=== PATIENT | male | born 1975 | race Caucasian/White ===

== ENCOUNTER → 2020-08-13 | Outpatient (CLI) | payer MEDICARE, OTHER ==
[~2020-08-13] MED LIST: ACTOS15 MG PO; CLARITIN10 M2 PO; CLEOCIN HCL300 MG PO; GABAPENTIN400 MG PO; HUMALOG100 UNIT/1 SC; JANUMET 50-1,01 EACH PO; LASIX 40 MG TAB40 MG PO; METOPROLOL SUCC50 MG PO; POTASSIUM CHLO10 ME2 PO; PRAVACHOL40 MG PO; PROBIOTIC1 EAC1 PO; TOUJEO MAX300 UNIT/1 SQ; ZESTRIL 40 MG T40 MG PO
== END ==
LOC: KOH-I 14:30
DX: N20.0 Calculus of kidney (principal)
CPT/HCPCS: 74176

== ENCOUNTER → 2020-11-14 | Outpatient (CLI) | payer MEDICARE, OTHER | LOC: CT 10:46 | DX: R31.9 Hematuria, unspecified (principal); K76.0 Fatty (change of) liver, not elsewhere classified; R16.1 Splenomegaly, not elsewhere classified | CPT/HCPCS: 36415; 82565; Q9967 ==

== ENCOUNTER 2021-02-24 11:15 | Emergency (ER) | payer MEDICARE, OTHER ==
[2021-02-24] MEDS ORDERED: CYCLOBENZAPRINE10 MG PO (13:44)
== END 2021-02-24 13:50 | disposition home or self-care (01) ==
LOC: ER1 11:15
DX: S93.401A Sprain of unspecified ligament of right ankle, initial encounter (principal); M54.50 Low back pain, unspecified; S80.811A Abrasion, right lower leg, initial encounter; S50.811A Abrasion of right forearm, initial encounter; E11.9 Type 2 diabetes mellitus without complications; I10 Essential (primary) hypertension; F41.9 Anxiety disorder, unspecified; V49.9XXA Car occupant (driver) (passenger) injured in unspecified traffic accident, initial encounter
CPT/HCPCS: 72128; 72131; 73610; 99284

== ENCOUNTER 2021-05-03 13:43 | Inpatient (IN) | payer MEDICARE, OTHER ==
[~2021-05-03] VITALS: Ht 180.3 cm; Wt 124.7 kg
[~2021-05-03 13:43] MED LIST changes: +CYCLOBENZAPRINE10 MG PO; -HUMALOG100 UNIT/1 SC; +HUMALOG100 UNIT/1 SQ
[2021-05-03 14:43] LABS: HEMOGLOBIN 13.6 gm/dl (14.0-17.5); RED BLOOD COUNT 5.35 M/UL (4.20-5.50); WHITE BLOOD COUNT 7.6 K/UL (4.5-11.0)
[2021-05-03 15:03] LABS: BUN/CREATININE RATIO 21 (0-10)
[2021-05-03] MEDS ORDERED: CLINDAMYCIN HC300 MG PO (17:55)
[2021-05-03] MEDS ORDERED: AMLODIPINE BES2.5 MG PO (17:56)
[2021-05-04 06:22] LABS: HEMOGLOBIN 12.9 gm/dl (14.0-17.5); RED BLOOD COUNT 5.07 M/UL (4.20-5.50); WHITE BLOOD COUNT 7.2 K/UL (4.5-11.0)
[2021-05-04 07:04] LABS: BUN/CREATININE RATIO 20 (0-10)
[2021-05-05 05:48] LABS: HEMOGLOBIN 12.8 gm/dl (14.0-17.5); RED BLOOD COUNT 5.07 M/UL (4.20-5.50); WHITE BLOOD COUNT 6.4 K/UL (4.5-11.0)
[2021-05-05 06:19] LABS: BUN/CREATININE RATIO 22 (0-10)
[2021-05-06 06:26] LABS: HEMOGLOBIN 13.6 gm/dl (14.0-17.5); RED BLOOD COUNT 5.24 M/UL (4.20-5.50); WHITE BLOOD COUNT 6.4 K/UL (4.5-11.0)
[2021-05-06 06:48] LABS: BUN/CREATININE RATIO 22 (0-10)
[2021-05-07 05:01] LABS: HEMOGLOBIN 12.6 gm/dl (14.0-17.5); RED BLOOD COUNT 4.86 M/UL (4.20-5.50); WHITE BLOOD COUNT 7.5 K/UL (4.5-11.0)
[2021-05-07 05:13] LABS: BUN/CREATININE RATIO 24 (0-10)
[2021-05-08 03:38] LABS: HEMOGLOBIN 12.8 gm/dl (14.0-17.5); RED BLOOD COUNT 4.96 M/UL (4.20-5.50); WHITE BLOOD COUNT 5.7 K/UL (4.5-11.0)
[2021-05-08 03:46] LABS: BUN/CREATININE RATIO 22 (0-10)
[2021-05-08] MEDS ORDERED: CEPHALEXIN500 MG PO (10:45)
[2021-05-08] MEDS ORDERED: BACTRIM DS TAB1 EACH PO (10:45)
== END 2021-05-08 11:45 | disposition home health service (06) | DRG 571 ==
LOC: ER1 13:43 → CDU 16:45 → M/S 16:45 → MED SURG 4 05-05 09:30 → M/S 05-05 09:30 → MED SURG 4 05-06 20:59
PROVIDERS: Internal Medicine; Physician Assistant; Physician Assistant Medical; Surgery; ADMIT Internal Medicine
PROC: 0J9C0ZZ Drainage of Pelvic Region Subcutaneous Tissue and Fascia, Open Approach (ICD-10-PCS; 2021-05-06)
PROC: 0JBC0ZZ Excision of Pelvic Region Subcutaneous Tissue and Fascia, Open Approach (ICD-10-PCS; principal; 2021-05-06 12:00)
DX: L02.214 Cutaneous abscess of groin (principal); Z68.41 Body mass index [BMI] 40.0-44.9, adult; E11.9 Type 2 diabetes mellitus without complications; I10 Essential (primary) hypertension; Z20.822 Contact with and (suspected) exposure to COVID-19; E66.9 Obesity, unspecified; L03.314 Cellulitis of groin; E78.00 Pure hypercholesterolemia, unspecified; Z79.4 Long term (current) use of insulin; Z88.8 Allergy status to other drugs, medicaments and biological substances; Z88.6 Allergy status to analgesic agent
CPT/HCPCS: 36415; 72193; 80048; 80053; 80202; 82962; 83036; 83605; 83735; 85025; 85027; 86140; 87040; 87070; 87077; 87205; 96374; 96376; 99284; G0378; J0690; J1100; J1956; J2001; J2250; J2405; J2704; J3010; J3370; J7030; J7050; J7070; J7120; Q9967; U0002

== ENCOUNTER → 2021-08-29 | Outpatient (CLI) | payer MEDICARE, OTHER ==
[~2021-08-29] MED LIST changes: +AMLODIPINE BES2.5 MG PO; +BACTRIM DS TAB1 EACH PO; +CEPHALEXIN500 MG PO; +CLINDAMYCIN HC300 MG PO
== END ==
LOC: RAD 11:54
DX: M79.672 Pain in left foot (principal); M19.072 Primary osteoarthritis, left ankle and foot
CPT/HCPCS: 73630